=== PATIENT | female | born 1990 | race Caucasian/White ===

== ENCOUNTER 2022-05-19 21:53 | Emergency (ER) | payer OTHER ==
[2022-05-19 22:03] VITALS: BP 115/79; PULSE 108; TEMP 99; BMI 32.4
[2022-05-19] MEDS ORDERED: IBUPROFEN 600 MG TABLET (FP) PO ONE ×2 (22:07→22:10)
== END 2022-05-19 22:43 | disposition home or self-care (01) ==
LOC: FER 21:53
DX: S93.402A Sprain of unspecified ligament of left ankle, initial encounter (principal)
CPT/HCPCS: 73610-TC-LT-FY; 73630-TC-LT; 99284-25

== ENCOUNTER 2022-09-30 07:28 | Emergency (ER) | payer OTHER ==
[2022-09-30] MEDS ORDERED: BENZOCAINE/MENTHOL 1 EACH LOZENGE MM PRN (07:36)
[2022-09-30] MEDS ORDERED: ACETAMINOPHEN 325 MG TABLET (FP) PO ONE (07:36)
[2022-09-30] MEDS ORDERED: IBUPROFEN 400 MG TABLET (FP) PO ONE ×2 (07:36→07:41)
[2022-09-30 07:38] VITALS: BP 145/98; PULSE 98; RESP 16; TEMP 98.6; BMI 32.9
[2022-09-30] MEDS ORDERED: levoFLOXacin 750 MG TABLET PO ONE (07:40)
[2022-09-30] MEDS ORDERED: ACETAMINOPHEN 325 MG TABLET (FP) ONE (07:41)
== END 2022-09-30 08:11 | disposition home or self-care (01) ==
LOC: FER 07:28
DX: J06.9 Acute upper respiratory infection, unspecified (principal); J01.90 Acute sinusitis, unspecified
CPT/HCPCS: 0241U-QW; 99283-25